=== PATIENT | female | born 1970 | race Caucasian/White ===

== ENCOUNTER 2019-11-24 07:35 | Outpatient (CLI) | payer BC ==
[2019-11-24 11:39] LABS: BASOPHILS % (AUTO) 0.6 %; EOSINOPHILS # (AUTO) 0.1 10^3/uL (0.0-0.7); EOSINOPHILS % (AUTO) 2.6 %; HGB - HEMOGLOBIN 13.8 g/dL (12.0-16.0); LYMPHOCYTES # (AUTO) 1.5 10^3/uL (1.5-3.5); LYMPHOCYTES % (AUTO) 30.5 %; MEAN CORPUSCULAR HEMOGLOBIN 33.3 pg (27.0-31.0); MEAN CORPUSCULAR HGB CONC 33.7 g/dL (32.0-36.0); MEAN CORPUSCULAR VOLUME 98.6 fL (81.0-99.0); MEAN PLATELET VOLUME 10.5 fL (7.9-10.8); MONOCYTES # (AUTO) 0.5 10^3/uL (0.0-1.0); MONOCYTES % (AUTO) 9.4 %; NEUTROPHILS # (AUTO) 2.8 10^3/uL (1.5-6.6); NEUTROPHILS % (AUTO) 56.5 %; PLT - PLATELET COUNT 176 10^3/uL (130-450); RED BLOOD COUNT 4.15 10^6/uL (4.20-5.40); RED CELL DISTRIBUTION WIDTH 12.6 % (12.0-15.0); WHITE BLOOD COUNT 4.9 x10^3/uL (4.8-10.8)
[2019-11-24 11:50] LABS: ALBUMIN 4.3 g/dL (3.2-5.5); ALBUMIN/GLOBULIN RATIO 1.6 (1.0-2.2); ALKALINE PHOSPHATASE 63 IU/L (42-121); ALT ALANINE AMINOTRANSFERASE 21 IU/L (10-60); AST ASPARTATE AMINOTRANSFERASE 19 IU/L (10-42); BUN - BLOOD UREA NITROGEN 16 mg/dL (6-20); CALCIUM 8.9 mg/dL (8.5-10.3); CARBON DIOXIDE - CO2 24 mmol/L (21-32); CHLORIDE 106 mmol/L (101-111); CHOL/HDL RATIO 4.7 (<4.4); CHOLESTEROL 201 mg/dL; CREATININE 0.7 mg/dL (0.4-1.0); GLUCOSE 91 mg/dL (70-100); HDL CHOLESTEROL 43 mg/dL; LDL CHOLESTEROL,CALCULATED 131 mg/dL; SODIUM 139 mmol/L (135-145); VLDL CHOLESTEROL 27 mg/dL
== END 2019-11-24 23:59 | disposition home or self-care (01) ==
LOC: LAB.WCP 07:35
PROVIDERS: ATTEND Nurse Practitioner Family
DX: Z00.00 Encounter for general adult medical examination without abnormal findings (principal)
CPT/HCPCS: 36415; 80053; 80061; 83721; 84443; 85025

== ENCOUNTER 2020-02-04 07:49 | Outpatient (CLI) | payer BC ==
--- NOTE | 2020-02-04 10:22 | Ultrasound Report ---
PROCEDURE: Pelvic w/Transvaginal INDICATIONS: IUD SURVEILLANCE TECHNIQUE: Real-time scanning was performed of the pelvic organs, with image documentation. Additional endovagi nal scanning was necessary due to incomplete visualization of the adnexal and endometrial structures by transabdominal scanning. COMPARISON: None. FINDINGS: Transabdominal scanning: Limited scanning through the kidneys shows no hydronephrosis. No pathologi c free abdominal or pelvic fluid. Endovaginal scanning: Uterus: Uterus is normal in size at 9.8 x 5.2 x 6.5 cm. The endometrium measures 2 mm in combined t hickness. IUD is present in appropriate position. Within the left anterior intramural region there i s a focus of heterogeneous echogenicity measuring 15 x 12 x 17 mm and 16 x 8 x 17 mm. A left posterio r subserosal region a similar focus is identified measuring 10 x 7 x 9 mm. Nabothian cysts are noted. Ovaries: Right ovary measures 1.9 x 1.0 x 1.7 cm, volume 1.4 cc. Left ovary measures 2.6 x 2.6 x 2.0 cm, volume 7.1 cc. Hypoechoic foci are noted in the left ovary largest measuring 12 mm. IMPRESSION: 1. IUD is in appropriate position. 2. Foci of decreased echogenicity within the left ovary likely consistent with small cysts. Reviewed by: Irena Johnson MD on 02/04/2020 10:21 AM PST Approved by: Irena Johnson MD on 02/04/2020 10:21 AM PST Station ID: [id number]
== END 2020-02-04 07:50 | disposition home or self-care (01) ==
LOC: DI 07:49
PROVIDERS: ATTEND Obstetrics & Gynecology
DX: Z30.431 Encounter for routine checking of intrauterine contraceptive device (principal)

== ENCOUNTER 2020-02-04 14:35 | Outpatient (CLI) | payer BC ==
--- NOTE | 2020-02-14 11:05 | Mammography Report ---
BILATERAL DIGITAL SCREENING MAMMOGRAM 3D/2D: 02/04/2020 CLINICAL: Routine screening. Comparison is made to exam dated: 01/10/2011 mammogram - [facility]. The tissue o f both breasts is heterogeneously dense. This may lower the sensitivity of mammography. There is a possible irregular equal density asymmetry in the left breast posterior depth inferior reg ion seen on the mediolateral oblique view only. No other significant masses, calcifications, or other findings are seen in either breast. IMPRESSION: INCOMPLETE: NEEDS ADDITIONAL IMAGING EVALUATION The possible irregular equal density asymmetry in the left breast is indeterminate. Additional views with possible ultrasound are recommended. This exam was interpreted at Station ID: [id number]. NOTE: For mammograms, a report in lay terms will be sent to the patient. Approximately 15% of breast malignancies will not be visualized mammographically. In the management of a palpable breast mass, a negative mammogram must not discourage biopsy of a clinically suspicious lesion. Electronically Signed By: Prasanth Marie M.D. aty/:02/11/2020 17:29:08 ACR BI-RADS Category 0: Incomplete 3340F PARENCHYMAL PATTERN: (D) - The breast(s) demonstrate(s) heterogeneously dense fibroglandular joão duran. BI-RADS CATEGORY: (0) - 0 Mammo and [place] [id number] Immediate follow-up LATERALITY: (L)
== END 2020-02-04 14:36 | disposition home or self-care (01) ==
LOC: DI.N 14:35
PROVIDERS: ATTEND Obstetrics & Gynecology
DX: Z12.31 Encounter for screening mammogram for malignant neoplasm of breast (principal); R92.8 Other abnormal and inconclusive findings on diagnostic imaging of breast
CPT/HCPCS: 77067

== ENCOUNTER 2020-02-29 08:48 | Day surgery (SDC) | payer BC ==
[2020-02-29] MEDS ORDERED: LACTATED RINGERS 1,000 ML IV ONE ×2 (08:59→10:33)
--- NOTE | 2020-02-29 09:36 | SURGERY HX AND PHYSICAL(T) ---
Surgical History & Physical - Chief Complaint/HPI Chief Complaint: Screening Colonoscopy History of Present Illness: 49-year-old female with no significant past medical history. No personal history of heart attack stroke or DVT/PE. Takes no systemic anticoagulation. No concerning symptoms or change in bowel movements. The denies any bleeding per rectum. Reports family history of lymphoma in brother who underwent segmental intestinal resection and subsequent chemotherapy and radiation. Patient insists that there was no personal or family history of colorectal neoplasm and/or inflammatory bowel disease. Here for age-appropriate screening colonoscopy - PMH/PSH/Social Hx Does the pt have a hx of MRSA?: No Eyes, Ears, Nose, Throat: None Cardiovascular: High cholesterol Respiratory: None Skin: None Endocrine/Autoimmune: HyPOthyroidism Gastrointestinal: None Urinary: None Musculoskeletal: Osteoarthritis Psychiatric: Depression, Anxiety, Post traumatic stress disorder - Home Meds and Allergies Home Medications: Atorvastatin [Lipitor] 1 tab ORAL DAILY 02/28/20 Levothyroxine [Synthroid] 1 tab ORAL DAILY 02/28/20 Topiramate [Topamax] 1 tab ORAL DAILY 02/28/20 buPROPion [Wellbutrin Sr] 1 tab ORAL DAILY 02/28/20 Allergies/Adverse Reactions: Allergies Allergy/AdvReac Type Severity Reaction Status Date / Time tetanus and diphtheria Allergy Anaphylaxis Verified 02/28/20 14:07 toxoids [From TDVAX] - Review of Systems Constitutional: Other (No pertinent positives on full review of systems. No significant constitutional complaints.) - Vital Signs Heart Rate: 86 Blood Pressure: 140/88 Temperature: 36 C Respiratory Rate: 12 O2 Saturation: 99 Weight (kg): 69.9 kg Height: 1.68 m - Physical Exam General Appearance: positive: No acute distress, Alert Eyes Bilatera: positive: Normal inspection, PERRL, EOMI ENT: positive: ENT inspection nml Neck: positive: Nml inspection Respiratory: positive: Chest non-tender, No respiratory distress, Breath sounds nml. negative: Wheezes, Rales, Rhonchi Cardiovascular: positive: Regular rate & rhythm Abdomen: positive: Non-tender, No distention. negative: Tenderness, Guarding, Rebound Extremities: positive: Non-tender, Full ROM, Nml appearance Neurologic/Psychiatric: positive: Oriented x3, CN's nml (2-12), Motor nml, Sensation nml, Mood/affect nml - Patient Review Patient Review: Problems were reviewed with the patient during this visit. Medications were reviewed with the patient during this visit. Allergies were reviewed this patient during this visit. Pertinent Tests Reviewed: All pertitent test for this patient were reviewed. - Assessment & Plan Assessment and Plan: 49-year-old female with no significant past medical history. Reported history of lymphoma in her brother for which bowel resection was performed; certain that she has no family history of colon cancer. Presents for routine screening colonoscopy. No symptoms. Takes no anticoagulation. No significant past medical history. Colonoscopy indicated for screening. Symptoms are as follows none. Risks and benefits discussed at length. Informed consent obtained. Risks include but are not limited to, bleeding, infection, perforation, missed lesions, injury to local structures, need for further surgeries, and the periprocedural/sedation risks of heart attack stroke and . Patient was advised if any concerning areas were noted these would be sampled if too big to resect or performed for excision if within reasonable limits for endoscopic intervention. Please note that voice recognition software was used to transcribe this note and inadvertent errors might persist in spite of review and editing. I am obliged to you for your attention. I am thankful to you for allowing me to participate with you in this care of this patient.
[2020-02-29] MEDS ORDERED: fentaNYL 250 MCG/5 ML VIAL ONE (09:51)
[2020-02-29] MEDS ORDERED: MIDAZOLAM 2 MG/2 ML VIAL ONE ×2 (09:51→10:35)
[2020-02-29 11:33] VITALS: BP 107/86
== END 2020-02-29 08:49 | disposition home or self-care (01) ==
LOC: SDS 08:48
PROVIDERS: ATTEND Surgery
PROC: 0DBH8ZZ Excision of Cecum, Via Natural or Artificial Opening Endoscopic (ICD-10-PCS; principal; 2020-02-29 10:00)
DX: Z12.11 Encounter for screening for malignant neoplasm of colon (principal); D12.0 Benign neoplasm of cecum; K64.8 Other hemorrhoids; E03.9 Hypothyroidism, unspecified; Z80.7 Family history of other malignant neoplasms of lymphoid, hematopoietic and related tissues
CPT/HCPCS: 45385; J3010; J7120

== ENCOUNTER 2020-03-27 10:09 | Outpatient (CLI) | payer BC ==
--- NOTE | 2020-03-28 08:28 | Ultrasound Report ---
LIMITED ULTRASOUND OF LEFT BREAST: 03/27/2020 CLINICAL: Patient returns today to evaluate a focal asymmetry in the left breast. Comparison is made to exams dated: 03/27/2020 mammogram, 02/04/2020 mammogram, and 01/10/2011 mammogra m - [facility]. Color flow ultrasound of the left breast 6 o'clock region was performed. Dhaliwal scale images of the r eal-time examination were reviewed. There is a benign 0.9 cm x 1 cm x 0.4 cm area of fibroglandular tissue with a circumscribed margin in the left breast at 6 o'clock posterior depth 10 cm from the nipple. This area of fibroglandular tis christina is isoechoic with fatty hilum and no posterior acoustic shadowing or enhancement. This correlate s with mammography findings. Color flow imaging demonstrates that there is no vascularity present. IMPRESSION: BENIGN There is no sonographic evidence of malignancy. The 0.9 cm x 1 cm x 0.4 cm area of fibroglandular tissue in the left breast has a differential diagno sis of a lymph node or fibroadenolipoma and is benign. A 1 year screening mammogram is recommended. This exam was interpreted at Station ID: [id number]. Electronically Signed By: Josh borjas/radha:03/27/2020 12:59:03 Ultrasound BI-RADS: 2 Benign BI-RADS CATEGORY: (2) - 2 RECOMMENDATION: (ANNUAL) - Recommend routine annual screening mammography. [id number] 1 year screening LATERALITY: (B)
--- NOTE | 2020-03-28 08:28 | Mammography Report ---
UNILATERAL LEFT DIGITAL DIAGNOSTIC MAMMOGRAM 3D/2D: 03/27/2020 CLINICAL: Patient returns today to evaluate a focal asymmetry in the left breast. Comparison is made to exams dated: 02/04/2020 mammogram and 01/10/2011 mammogram - [facility]. The tissue of left breast is heterogeneously dense. This may lower the sensitivity of m ammography. There is a focal asymmetry in the left breast at 6 o'clock posterior depth. This is seen in addition al views. No other significant masses or calcifications are seen in the breast. IMPRESSION: INCOMPLETE: NEEDS ADDITIONAL IMAGING EVALUATION The focal asymmetry in the left breast has a differential diagnosis of fibroglandular tissue and is i ndeterminate. An ultrasound is recommended. This exam was interpreted at Station ID: [id number]. NOTE: For mammograms, a report in lay terms will be sent to the patient. Approximately 15% of breast malignancies will not be visualized mammographically. In the management of a palpable breast mass, a negative mammogram must not discourage biopsy of a clinically suspicious lesion. SUMMARY: Targeted ultrasound is recommended for further evaluation and will be scheduled immediately following this exam. Electronically Signed By: Josh borjas/radha:03/27/2020 12:55:37 ACR BI-RADS Category 0: Incomplete 3340F PARENCHYMAL PATTERN: (D) - The breast(s) demonstrate(s) heterogeneously dense fibroglandular joão duran. BI-RADS CATEGORY: (0) - 0 Ultrasound [id number] Immediate follow-up LATERALITY: (L)
== END 2020-03-27 10:10 | disposition home or self-care (01) ==
LOC: DI 10:09
PROVIDERS: ATTEND Nurse Practitioner Family
DX: N64.89 Other specified disorders of breast (principal)

== ENCOUNTER 2021-11-23 07:17 | Outpatient (CLI) | payer BC ==
[2021-11-23 12:31] LABS: BASOPHILS % (AUTO) 0.8 %; EOSINOPHILS # (AUTO) 0.1 10^3/uL (0.0-0.7); EOSINOPHILS % (AUTO) 2.8 %; HCT - HEMATOCRIT 42.9 % (37.0-47.0); HGB - HEMOGLOBIN 14.5 g/dL (12.0-16.0); LYMPHOCYTES # (AUTO) 1.7 10^3/uL (1.5-3.5); LYMPHOCYTES % (AUTO) 33.3 %; MEAN CORPUSCULAR HGB CONC 33.8 g/dL (32.0-36.0); MEAN CORPUSCULAR VOLUME 97.7 fL (81.0-99.0); MEAN PLATELET VOLUME 10.8 fL (7.9-10.8); MONOCYTES # (AUTO) 0.4 10^3/uL (0.0-1.0); NEUTROPHILS # (AUTO) 2.7 10^3/uL (1.5-6.6); NEUTROPHILS % (AUTO) 54.7 %; PLT - PLATELET COUNT 198 10^3/uL (130-450); RED BLOOD COUNT 4.39 10^6/uL (4.20-5.40); RED CELL DISTRIBUTION WIDTH 12.4 % (12.0-15.0)
[2021-11-23 12:49] LABS: THYROID STIMULATING HORMONE 1.51 uIU/mL (0.34-5.60)
[2021-11-23 12:50] LABS: FREE T4 (FREE THYROXINE) 1.09 ng/dL (0.58-1.64)
[2021-11-23 12:59] LABS: ALBUMIN 4.8 g/dL (3.2-5.5); ALKALINE PHOSPHATASE 60 IU/L (42-121); ALT ALANINE AMINOTRANSFERASE 18 IU/L (10-60); AST ASPARTATE AMINOTRANSFERASE 18 IU/L (10-42); BILIRUBIN,TOTAL 0.9 mg/dL (0.2-1.0); BUN - BLOOD UREA NITROGEN 14 mg/dL (6-20); CALCIUM 9.4 mg/dL (8.5-10.3); CARBON DIOXIDE - CO2 28 mmol/L (21-32); CHLORIDE 104 mmol/L (101-111); CHOL/HDL RATIO 3.9 (<4.4); CHOLESTEROL 181 mg/dL; CREATININE 0.6 mg/dL (0.4-1.0); GFR - MDRD 105 (>89); GLUCOSE 92 mg/dL (70-100); HDL CHOLESTEROL 47 mg/dL; LDL CHOLESTEROL,CALCULATED 110 mg/dL; LDL/HDL RATIO 2.3 (<4.4); SODIUM 139 mmol/L (135-145); TOTAL PROTEIN 7.2 g/dL (6.7-8.2); TRIGLYCERIDES 120 mg/dL; VLDL CHOLESTEROL 24 mg/dL
== END 2021-11-23 07:18 | disposition home or self-care (01) ==
LOC: LAB.N 07:17
PROVIDERS: ATTEND Physician Assistant
DX: E03.9 Hypothyroidism, unspecified (principal); E78.5 Hyperlipidemia, unspecified
CPT/HCPCS: 36415; 80053; 80061; 83721; 84439; 84443; 85025

== ENCOUNTER 2021-12-11 13:32 | Outpatient (CLI) | payer BC ==
--- NOTE | 2021-12-12 12:12 | Mammography Report ---
BILATERAL DIGITAL SCREENING MAMMOGRAM 3D/2D: 12/11/2021 CLINICAL: Routine screening. Comparison is made to exams dated: 03/27/2020 ultrasound, 03/27/2020 mammogram, 02/04/2020 mammogram, an d 01/10/2011 mammogram - [facility]. Both breasts are heterogeneously dense, which may obscure small masses (category c / 51-75% glandula r tissue). No significant masses, calcifications, or other findings are seen in either breast. There has been no significant interval change. IMPRESSION: NEGATIVE There is no mammographic evidence of malignancy. A 1 year screening mammogram is recommended. Based on the Tyrer Cuzick model (a risk assessment model) the patients lifetime risk is 8.8% and her 10 year risk is 2.3%. According to the ACR, ACS, and NCCN guidelines, an annual breast MRI exam tristen g with mammogram is recommended if the patients lifetime risk is 20% or greater. This exam was interpreted at Station ID: [id number]. NOTE: For mammograms, a report in lay terms will be sent to the patient. Approximately 15% of breast malignancies will not be visualized mammographically. In the management of a palpable breast mass, a negative mammogram must not discourage biopsy of a clinically suspicious lesion. Electronically Signed By: Prasanth kerr/radha:12/12/2021 07:26:00 ACR BI-RADS Category 1: Negative 3341F PARENCHYMAL PATTERN: (D) - The breast(s) demonstrate(s) heterogeneously dense fibroglandular joão duran. BI-RADS CATEGORY: (1) - 1 RECOMMENDATION: (ANNUAL) - Recommend routine annual screening mammography. [id number] 1 year screening LATERALITY: (B)
== END 2021-12-11 13:33 | disposition home or self-care (01) ==
LOC: DI.N 13:32
PROVIDERS: ATTEND Physician Assistant
DX: Z12.31 Encounter for screening mammogram for malignant neoplasm of breast (principal)

== ENCOUNTER 2022-02-28 06:11 | Day surgery (SDC) | payer BC ==
[2022-02-28] MEDS ORDERED: LACTATED RINGERS 1,000 ML IV ONE ×2 (06:14→08:00)
--- NOTE | 2022-02-28 07:11 | ANESTHESIA ---
Pre-Anesthesia VS, & Labs - Diagnosis screening - Procedure colonoscopy Vital Signs: Temp Pulse Resp BP Pulse Ox O2 Flow Rate 36 C L 85 16 119/97 H 96 02/28/22 06:20 02/28/22 06:20 02/28/22 06:20 02/28/22 06:20 02/28/22 06:20 Height: 5 ft 6 in Weight (kg): 75 kg Body Mass Index: 26.6 BMI Classification: Overweight - NPO >8 hours - Is Patient ?: No Home Medications and Allergies Home Medications: Ambulatory Orders FLUoxetine [PROzac] 40 mg PO DAILY 02/27/22 Atorvastatin [Lipitor] 1 tab ORAL DAILY 02/28/20 Levothyroxine [Synthroid] 1 tab ORAL DAILY 02/28/20 FLUoxetine [PROzac] 40 mg PO DAILY 02/27/22 Allergies/Adverse Reactions: Allergies Allergy/AdvReac Type Severity Reaction Status Date / Time tetanus and diphtheria Allergy Anaphylaxis Verified 02/27/22 12:26 toxoids [From TDVAX] adhesive tape AdvReac Rash Verified 02/27/22 12:27 Anes History & Medical History - Anesthetic History Anesthesia Complications: reports: No previous complications - Medical History Cardiovascular: reports: High cholesterol Endocrine/Autoimmune: reports: HyPOthyroidism History of Cancer?: No - Surgical History General: reports: Colonoscopy Gynecologic: reports: Tubal ligation Exam General: Alert, Oriented x3 Mouth Opening: Greater than 4 Fingerbreadths Neck Mobility: Normal Mallampati classification: II Respiratory: Lungs clear Cardiovascular: Regular rate Plan Anesthesia Type: Total IV Consent for Procedure(s) Verified and Reviewed: Yes Code Status: Attempt Resuscitation ASA classification: 2-Mild systemic disease Is this case an emergency?: No
--- NOTE | 2022-02-28 07:21 | HISTORY & PHYSICAL EXAMINATION ---
Chief Complaint - Chief Complaint Chief Complaint: here for colonoscopy History of Present Illness - History Obtained From Records Reviewed: yes History obtained from: pt Exam Limitations: none - History of Present Illness HPI Comment/Other: history large flat cecal polyp removed piecemeal about 1 year ago. here for surveillance History - Past Medical History Cardiovascular: reports: High cholesterol Endocrine/Autoimmune: reports: HyPOthyroidism Psych: reports: Post traumatic stress disorder MRSA Hx?: No - Past Surgical History General: reports: Colonoscopy /COACH: reports: Tubal ligation Meds/Allgy - Home Medications Home Medications: Ambulatory Orders Medication Instructions Recorded Confirmed Atorvastatin [Lipitor] 1 tab ORAL DAILY 02/28/20 02/27/22 Levothyroxine [Synthroid] 1 tab ORAL DAILY 02/28/20 02/28/22 FLUoxetine [PROzac] 40 mg PO DAILY 02/27/22 02/27/22 - Allergies Allergies/Adverse Reactions: Allergies Allergy/AdvReac Type Severity Reaction Status Date / Time tetanus and diphtheria Allergy Anaphylaxis Verified 02/27/22 12:26 toxoids [From TDVAX] adhesive tape AdvReac Rash Verified 02/27/22 12:27 Review of Systems - Other Findings Other Findings: 10 pt ros as above otherwise unremarkable Exam - Vital Signs Reviewed Vital Signs: Yes Vital Signs: Vital Signs x48h Temp Pulse Resp BP Pulse Ox 02/28/22 06:20 36 C L 85 16 119/97 H 96 - Physical Exam General Appearance: positive: No acute distress, Alert Eyes Bilateral: positive: PERRL, EOMI ENT: positive: No signs of dehydration Neck: positive: No JVD Respiratory: positive: Breath sounds nml Cardiovascular: positive: Regular rate & rhythm Abdomen: positive: Non-tender, No distention Conclusion/Plan - Problem List (1) History of adenomatous polyp of colon Conclusion/Plan: plan colonoscopy. parq held and consent obtained
[2022-02-28] MEDS ORDERED: PROPOFOL 500 MG/50 ML 0 MG/0 ML VIAL ONE (07:25)
[2022-02-28] MEDS ORDERED: SIMETHICONE 40 MG/0.6 ML 30 ML BOTTLE PO ONE (07:41)
[2022-02-28] MEDS ORDERED: PROPOFOL 500 MG/50 ML 500 MG/50 ML VIAL ONE (07:48)
[2022-02-28 08:27] VITALS: BP 116/75
--- NOTE | 2022-02-28 08:34 | ANESTHESIA POST OP EVALUATION ---
Anesthesia Post Eval - Post Anesthesia Eval Vitals: Last Vital Signs Temp 36.2 C L 02/28/22 08:26 Pulse 73 02/28/22 08:26 Resp 16 02/28/22 08:26 BP 116/75 02/28/22 08:26 Pulse Ox 100 02/28/22 08:26 O2 Flow Rate CV Function Including HR & BP: Stable Pain Control: Satisfactory Nausea & Vomiting: Negative Mental Status: Baseline Respiratory Status: Airway Patent Hydration Status: Satisfactory Anesthesia Complications: None
== END 2022-02-28 06:12 | disposition home or self-care (01) ==
LOC: SDS 06:11
PROVIDERS: ATTEND Surgery
DX: Z12.11 Encounter for screening for malignant neoplasm of colon (principal); Z86.010 Personal history of colon polyps; F43.10 Post-traumatic stress disorder, unspecified
CPT/HCPCS: 45378; A9270; J7120

== ENCOUNTER 2022-05-10 13:51 | Outpatient (CLI) | payer BC ==
--- NOTE | 2022-05-10 14:33 | XRAY Report ---
PROCEDURE: Foot 3 View RT INDICATIONS: CONTUSION OF RIGHT FOOT INITIAL ENCOUNTER TECHNIQUE: 3 views of the foot were acquired. COMPARISON: None FINDINGS: Bones: No fractures or dislocations. No suspicious bony lesions. Calcaneal spur is present. Soft tissues: No tibiotalar joint effusion. Achilles tendon appears normal. IMPRESSION: No visualized acute fracture or dislocation. However, occult injury cannot be excluded. Recommend tessa rt interval imaging follow-up in 7-10 days as clinically indicated for additional evaluation. Reviewed by: Irena Johnson MD on 05/10/2022 2:32 PM PDT Approved by: Irena Johnson MD on 05/10/2022 2:32 PM PDT Station ID: [id number]
== END 2022-05-10 13:52 | disposition home or self-care (01) ==
LOC: DI 13:51
PROVIDERS: ATTEND Physician Assistant Medical
DX: S90.31XA Contusion of right foot, initial encounter (principal)

== ENCOUNTER 2023-03-07 07:06 | Outpatient (CLI) | payer BC ==
[2023-03-07 12:07] LABS: BASOPHILS % (AUTO) 0.9 %; EOSINOPHILS # (AUTO) 0.2 10^3/uL (0.0-0.7); EOSINOPHILS % (AUTO) 3.3 %; HCT - HEMATOCRIT 41.7 % (37.0-47.0); HGB - HEMOGLOBIN 13.6 g/dL (12.0-16.0); LYMPHOCYTES # (AUTO) 1.5 10^3/uL (1.5-3.5); MEAN CORPUSCULAR HEMOGLOBIN 32.5 pg (27.0-31.0); MEAN CORPUSCULAR HGB CONC 32.6 g/dL (32.0-36.0); MEAN CORPUSCULAR VOLUME 99.8 fL (81.0-99.0); MEAN PLATELET VOLUME 10.9 fL (7.9-10.8); MONOCYTES # (AUTO) 0.4 10^3/uL (0.0-1.0); MONOCYTES % (AUTO) 9.5 %; NEUTROPHILS # (AUTO) 2.4 10^3/uL (1.5-6.6); NEUTROPHILS % (AUTO) 52.1 %; PLT - PLATELET COUNT 176 10^3/uL (130-450); RED BLOOD COUNT 4.18 10^6/uL (4.20-5.40); RED CELL DISTRIBUTION WIDTH 12.1 % (12.0-15.0); WHITE BLOOD COUNT 4.5 x10^3/uL (4.8-10.8)
[2023-03-07 12:54] LABS: THYROID STIMULATING HORMONE 0.19 uIU/mL (0.34-5.60)
[2023-03-07 12:56] LABS: ALBUMIN 4.5 g/dL (3.2-5.5); ALKALINE PHOSPHATASE 80 IU/L (42-121); ALT ALANINE AMINOTRANSFERASE 45 IU/L (10-60); AST ASPARTATE AMINOTRANSFERASE 28 IU/L (10-42); BILIRUBIN,TOTAL 0.7 mg/dL (0.2-1.0); BUN - BLOOD UREA NITROGEN 13 mg/dL (6-20); CALCIUM 9.6 mg/dL (8.5-10.3); CARBON DIOXIDE - CO2 29 mmol/L (21-32); CHLORIDE 104 mmol/L (101-111); CHOLESTEROL 158 mg/dL; CREATININE 0.7 mg/dL (0.6-1.3); GFR - MDRD 88 (>89); GLUCOSE 94 mg/dL (74-104); HDL CHOLESTEROL 40 mg/dL; LDL CHOLESTEROL,CALCULATED 89 mg/dL; LDL/HDL RATIO 2.2 (<4.4); POTASSIUM 4.3 mmol/L (3.5-4.5); SODIUM 140 mmol/L (135-145); TOTAL PROTEIN 6.7 g/dL (6.4-8.9); TRIGLYCERIDES 146 mg/dL (48-352); VLDL CHOLESTEROL 29 mg/dL
== END 2023-03-07 07:07 | disposition home or self-care (01) ==
LOC: LAB.N 07:06
PROVIDERS: ATTEND Physician Assistant
DX: Z00.00 Encounter for general adult medical examination without abnormal findings (principal); E03.9 Hypothyroidism, unspecified; E78.5 Hyperlipidemia, unspecified
CPT/HCPCS: 36415; 80053; 80061; 83721; 84439; 84443; 85025

== ENCOUNTER 2023-04-19 11:35 | Outpatient (CLI) | payer BC ==
[2023-04-19 19:08] LABS: BASOPHILS % (AUTO) 0.5 %; EOSINOPHILS # (AUTO) 0.2 10^3/uL (0.0-0.7); EOSINOPHILS % (AUTO) 2.6 %; HCT - HEMATOCRIT 41.6 % (37.0-47.0); HGB - HEMOGLOBIN 13.1 g/dL (12.0-16.0); LYMPHOCYTES % (AUTO) 33.3 %; MEAN CORPUSCULAR HEMOGLOBIN 31.5 pg (27.0-31.0); MEAN CORPUSCULAR HGB CONC 31.5 g/dL (32.0-36.0); MEAN PLATELET VOLUME 10.9 fL (7.9-10.8); MONOCYTES # (AUTO) 0.6 10^3/uL (0.0-1.0); MONOCYTES % (AUTO) 9.6 %; NEUTROPHILS # (AUTO) 3.2 10^3/uL (1.5-6.6); NEUTROPHILS % (AUTO) 53.7 %; PLT - PLATELET COUNT 175 10^3/uL (130-450); RED BLOOD COUNT 4.16 10^6/uL (4.20-5.40); RED CELL DISTRIBUTION WIDTH 12.6 % (12.0-15.0)
== END 2023-04-19 11:36 | disposition home or self-care (01) ==
LOC: LAB.N 11:35
PROVIDERS: ATTEND Obstetrics & Gynecology
DX: Z01.812 Encounter for preprocedural laboratory examination (principal); T83.39XA Other mechanical complication of intrauterine contraceptive device, initial encounter
CPT/HCPCS: 36415; 85025

== ENCOUNTER 2023-04-22 12:34 | Day surgery (SDC) | payer BC ==
[2023-04-22] MEDS: LACTATED RINGERS 1,000 ML IV ONE (12:50)
--- NOTE | 2023-04-22 14:44 | ANESTHESIA ---
Pre-Anesthesia VS, & Labs - Diagnosis retained IUD, unable to tolerate removal in office - Procedure hysteroscopy, IUD removal Vital Signs: Temp Pulse Resp BP Pulse Ox O2 Flow Rate 36.1 C L 75 23 130/79 100 04/22/23 12:55 04/22/23 12:55 04/22/23 12:55 04/22/23 12:55 04/22/23 12:55 Height: 5 ft 6 in Weight (kg): 80.7 kg Body Mass Index: 28.7 BMI Classification: Overweight - NPO >8 hours - Is Patient ?: No - Lab Results Lab results reviewed: Yes Home Medications and Allergies Home Medications: Ambulatory Orders Rizatriptan Benzoate [Rizatriptan] 5 mg PO ONCE PRN 04/15/23 Atorvastatin [Lipitor] 10 mg ORAL HS 02/28/20 Levothyroxine [Synthroid] 100 mcg ORAL DAILY 02/28/20 FLUoxetine [PROzac] 60 mg PO QDLUNCH 02/27/22 Rizatriptan Benzoate [Rizatriptan] 5 mg PO ONCE PRN 04/15/23 Allergies/Adverse Reactions: Allergies Allergy/AdvReac Type Severity Reaction Status Date / Time tetanus and diphtheria Allergy Anaphylaxis Verified 04/21/23 13:24 toxoids [From TDVAX] adhesive tape AdvReac Rash Verified 04/21/23 13:24 Anes History & Medical History - Anesthetic History Anesthesia Complications: reports: No previous complications Family history of Anesthesia Complications: Denies Family history of Malignant Hyperthermia: Denies - Medical History Cardiovascular: reports: High cholesterol, Arrhythmia (holter monitor 2 months ago. cardiac workup negative. no RX), Other Pulmonary: reports: Sleep apnea, CPAP use Gastrointestinal: reports: None Urinary: reports: None Neuro: reports: Migraines Musculoskeletal: reports: Chronic back pain Endocrine/Autoimmune: reports: HyPOthyroidism Blood Disorders: reports: None Skin: reports: None Smoking Status: Never smoker - Surgical History General: reports: Colonoscopy Gynecologic: reports: Tubal ligation, LEEP (Cervical surgery) Exam General: Alert, Oriented x3, Cooperative Dental: WNL, Other (temporary crown at R molar) Mouth Openin Fingerbreadth Neck Mobility: Normal Mallampati classification: III Thyromental Distance: 4-6 cm Respiratory: Lungs clear, Normal breath sounds, No respiratory distress Cardiovascular: Regular rate Mental/Cognitive Status: Alert/Oriented X3, Normal for patient Cognitive Status: Within normal limits Plan Anesthesia Type: General (back up plan), MAC Consent for Procedure(s) Verified and Reviewed: Yes Code Status: Attempt Resuscitation ASA classification: 2-Mild systemic disease Is this case an emergency?: No
[2023-04-22] MEDS ORDERED: fentaNYL 100 MCG/2 ML VIAL IVP PRN (14:49)
[2023-04-22] MEDS ORDERED: ONDANSETRON 4 MG/2 ML VIAL IVP PRN (14:49)
[2023-04-22] MEDS ORDERED: METOCLOPRAMIDE 10 MG/2 ML VIAL IVP PRN (14:49)
[2023-04-22] MEDS ORDERED: ePHEDrine 50 MG/ML VIAL IVP PRN (14:49)
[2023-04-22] MEDS ORDERED: HYDROmorphone 0.5 MG/0.5 ML SYRINGE IVP PRN (14:49)
[2023-04-22] MEDS ORDERED: NALOXONE 0.4 MG/ML VIAL IVP PRN (14:49)
[2023-04-22] MEDS ORDERED: ATROPINE ABBOJECT 1 MG/10 ML SYRINGE IVP PRN (14:49)
[2023-04-22] MEDS ORDERED: MORPHINE 2 MG/ML CARPUJECT IVP PRN (14:49)
[2023-04-22] MEDS ORDERED: LACTATED RINGERS 1,000 ML IV SCH (15:00)
[2023-04-22] MEDS ORDERED: fentaNYL 100 MCG/2 ML VIAL ONE (15:55)
[2023-04-22] MEDS ORDERED: LIDOCAINE-PF 2% 10 ML AMP SUBQ ONE (15:55)
[2023-04-22] MEDS ORDERED: MIDAZOLAM 2 MG/2 ML VIAL ONE (15:55)
[2023-04-22] MEDS ORDERED: PROPOFOL 200 MG/20 ML VIAL IVP ONE ×2 (15:55→16:32)
--- NOTE | 2023-04-22 17:03 | OPERATIVE REPORT ---
Operative Report - General Procedure Date: 04/22/23 Planned Procedure: Hysteroscopic IUD removal Pre-Op Diagnosis: Retained IUD Procedure Performed: Hysteroscopic IUD removal Post Op Diagnosis: Status post hysteroscopic IUD removal - Procedure Note Primary Surgeon: Jose Villanueva MD Anesthesia Provider: Bertrand Babin CRNA Anesthesia Technique: MAC Pathology: None IV Fluids (mL): 900 Estimated Blood Loss (mL): 15 Urine Output (mL): 0 (bladder not drained) Complications: None - Other Other Information/Narrative: Patient was taken to the procedure room and placed in dorsal lithotomy position. Hibiclens was used to clean the operative area. Joanna speculum was palced in the vagina and the cervix was visualized. The anterior lip the cervix was g rasped with a single-tooth tenaculum. The cervix was stenotic and slow, sequential dilation was needed. Hysteroscope was then used to hydrodilate using normal saline distention media. Hysteroscope was advanced without difficulty using hydrodistention. Cervical canal appeared normal upon entry into the internal cervical os there was noted to be possible proliferative endometrium within the uterus. IUD was seen immediately upon entry and a hysteroscopic grasper was used to grasp the cervix and was removed. Hysteroscope was reintroduced. Bilateral tubal ostia were noted. Hysteroscope was then removed. Tenaculum was then removed from the cervix noted to be hemostatic. All instruments removed from the vagina Fluid deficit 25.
[2023-04-22] MEDS: LACTATED RINGERS 200 ML IV ONE (17:04)
[2023-04-22] MEDS: HYDROmorphone 1 MG/ML CARPUJECT ONE (17:15)
--- NOTE | 2023-04-22 17:21 | ANESTHESIA POST OP EVALUATION ---
Anesthesia Post Eval - Post Anesthesia Eval Vitals: Last Vital Signs Temp 36.4 C L 04/22/23 17:05 Pulse 70 04/22/23 17:05 Resp 16 04/22/23 17:05 BP 145/78 H 04/22/23 17:05 Pulse Ox 95 04/22/23 17:05 O2 Flow Rate CV Function Including HR & BP: Stable Pain Control: Satisfactory Nausea & Vomiting: Negative Mental Status: Baseline Respiratory Status: Airway Patent Hydration Status: Satisfactory Anesthesia Complications: None
[2023-04-22] MEDS: KETOROLAC 30 MG/ML VIAL IVP ONE (17:36)
[2023-04-22] MEDS ORDERED: KETOROLAC 30 MG/ML VIAL ONE (17:36)
[2023-04-22 17:54] VITALS: O2SAT 97
[2023-04-22 18:20] VITALS: BP 146/86
== END 2023-04-22 12:35 | disposition home or self-care (01) ==
LOC: SDS 12:34
PROVIDERS: ATTEND Obstetrics & Gynecology
DX: Z30.432 Encounter for removal of intrauterine contraceptive device (principal); Z78.0 Asymptomatic menopausal state; E03.9 Hypothyroidism, unspecified; G47.30 Sleep apnea, unspecified; F32.A Depression, unspecified; F41.9 Anxiety disorder, unspecified
CPT/HCPCS: 58579; J1170; J7120; 81025